=== PATIENT | female | born 1985 | race Caucasian/White ===

== ENCOUNTER 2025-05-22 14:48 | Emergency (ER) | payer SELFPAY ==
[~2025-05-22] VITALS: Ht 167.6 cm; Wt 90.0 kg
[2025-05-22 14:51] VITALS: O2SAT 99
[2025-05-22 15:19] VITALS: TEMP 37.3
[2025-05-22] MEDS: LORAZEPAM 2MG/ML UD SYRINGE IV NR (15:36)
[2025-05-22] MEDS: SODIUM CHLORIDE 0.9% 1,000 ML IV ONE (15:36)
[2025-05-22 15:40] LABS: BASOPHILS % 0.3 % (0.0-2.0); EOSINOPHILS % 0.1 % (0.0-5.0); HEMATOCRIT. 38.0 % (36.0-48.0); HEMOGLOBIN. 12.9 g/dL (12.0-16.0); LYMPHOCYTES % 16.5 % (20.0-50.0); MEAN PLATELET VOLUME 7.7 fl (7.4-10.4); MONOCYTES % 8.2 % (2.0-8.0); NEUTROPHILS % 74.9 % (40.0-76.0); PLATELET 278 x1000/uL (130-400); RED BLOOD CELL COUNT 4.04 mill/uL (4.2-5.4); RED CELL DISTRIBUTION WIDTH 13.7 % (11.6-14.6)
[2025-05-22 15:50] LABS: INR 1.0
[2025-05-22 15:55] LABS: CREATININE 0.7 mg/dL (0.6-1.0)
[2025-05-22 15:56] LABS: ETHANOL BLOOD < 10 mg/dL (<10); TROPONIN I HIGH SENSITIVITY < 4 ng/L (3.0-34); UREA NITROGEN BLOOD 10 mg/dL (9-23)
[2025-05-22 15:57] LABS: ASPARTATE AMINOTRANSFERASE 10 IU/L (<34)
[2025-05-22 15:58] LABS: BILIRUBIN DIRECT < 0.1 mg/dL (<=3.0); BILIRUBIN TOTAL 0.2 mg/dL (0.1-1.0); PROTEIN TOTAL 6.9 g/dL (6.0-8.3)
[2025-05-22 16:35] LABS: HCG SCREEN NEGATIVE
[2025-05-22 16:42] VITALS: BP 115/68; PULSE 87; RESP 16; O2SAT 99
== END 2025-05-22 16:43 | disposition home or self-care (01) ==
LOC: ER 14:48 → CANBEDREQ 16:13 → ER 16:43
DX: R00.0 Tachycardia, unspecified (principal); Z79.899 Other long term (current) drug therapy; Z98.890 Other specified postprocedural states
CPT/HCPCS: 80076; 80048; 80320; 82140; 82550; 84703; 83880; 83690; 83735; 85025; 85610; 84484; 36415; 93005; 96361; 96374; 99284; J2060; J7030; Z7610; G0480